=== PATIENT | male | born 1975 | race Caucasian/White ===

== ENCOUNTER 2017-10-10 08:02 | Emergency (ER) | payer BC ==
[~2017-10-10] VITALS: Ht 172.7 cm; Wt 72.6 kg
[~2017-10-10 08:02] MED LIST: [UNRECOGNIZED DRUG - REMARK]
[2017-10-10] MEDS ORDERED: SULF1TAB35 PO (09:08)
--- NOTE | 2017-10-10 09:08 | ED Integumentary General ---
General Chief Complaint: Bite-Animal/Human/Insect Stated Complaint: L ARM LAC BURNING Nursing Triage Note: Pt reports he was bitten by neighbor's dog on 10/06 to L forearm. Pt reports redness and "burning sensation" to L elbow upon waking this AM. Source: patient Exam Limitations: no limitations History of Present Illness Date Seen by Provider: October 10, 2017 Time Seen by Provider: 08:53 Initial Comments Patient presents to the ER by private conveyance with a chief complaint of to 3 days ago he came around a corner of his neighbor's house startled her dog and it bit him on the left forearm. His a few scratches on his forearm that are healing well. He was cleaning with peroxide and triple antibiotic ointment and wasn't concerned until today he noticed some redness, heat and swelling over the medial left elbow. He is not having any fevers chills nausea vomiting or diarrhea. He has no significant medical history and does not follow with a doctor. The neighbors report that the dog is up-to-date on vaccinations. Allergies and Home Medications Allergies Coded Allergies: No Known Drug Allergies (Unverified , 10/10/11) Patient Home Medication List Home Medication List Reviewed: Yes Constitutional: No chills, No fever EENTM: No ear discharge, No ear pain Respiratory: No cough, No short of breath Cardiovascular: No chest pain, No Hx of Intervention Gastrointestinal: No abdominal pain, No constipation, No diarrhea, No nausea Genitourinary: No discharge, No dysuria Skin: see HPI Past [id number] Hx Patient Social History Alcohol Use: Denies Use Recreational Drug Use: No Smoking Status: Never a Smoker Recent Foreign Travel: No Contact w/Someone Who Travel: No Recent Infectious Disease Expo: No Recent Hopitalizations: No Seasonal Allergies Seasonal Allergies: No Past Medical History Surgeries: Yes Orthopedic Respiratory: No Cardiac: No Neurological: No Genitourinary: No Gastrointestinal: No Musculoskeletal: No Endocrine: No HEENT: No Cancer: No Psychosocial: No Integumentary: No Blood Disorders: No Physical Exam Vital Signs Vital Signs - First Documented 10/10/17 08:34 Temp 98.7 Pulse 71 Resp 18 B/P (MAP) 127/91 (103) Pulse Ox 98 O2 Delivery Room Air Capillary Refill : Less Than 3 Seconds General Appearance: WD/WN, no apparent distress HEENT: PERRL/EOMI, pharynx normal Neck: full range of motion, normal inspection Cardiovascular: normal peripheral pulses, regular rate, rhythm, no edema Respiratory: no respiratory distress, no accessory muscle use Extremities: normal range of motion, normal capillary refill, other (left medial epitrochlear lymph node less than 1 cm palpable with overlying erythema but no area of fluctuance, induration or pore) Neurologic/Psychiatric: alert, oriented x 3 Skin: other (few superficial abrasions without area of fluctuance, erythema or induration around them that are well-healing on the forearm) Progress/Results/Core Measures Results/Orders Vital Signs/I&O 10/10/17 08:34 Temp 98.7 Pulse 71 Resp 18 B/P (MAP) 127/91 (103) Pulse Ox 98 O2 Delivery Room Air Blood Pressure Mean: 103 Progress Progress Note : Time: 09:04 Progress Note Reactive lymph node with some erythema after a dog bite. Be reasonable to cover him with some antibiotics, warm compresses in case it turns into an abscess lymph node. We have given him return precautions. Departure Impression Primary Impression: Dog bite Qualified Codes: W54.0XXA - Bitten by dog, initial encounter Additional Impression: Epitrochlear lymphadenopathy Disposition: 01 HOME, SELF-CARE Condition: Stable Departure-Patient Inst. Decision time for Depature: 09:05 Referrals: NO,LOCAL PHYSICIAN (PCP/Family) Primary Care Physician Patient Instructions: Animal Bites (DC) Add. Discharge Instructions: Keep an eye on the dog in the next 10 days and if it has any on behaviors he should follow-up with your doctor. If you're swelling and pain gets worse then you should follow-up with a doctor. Obtain the antibiotics and take one tablet twice a day for the next 5 days. Apply warm compresses several times a day for the next couple days until the swelling and redness goes away. All discharge instructions reviewed with patient and/or family. Voiced understanding. Scripts Sulfamethoxazole/Trimethoprim (Bactrim Ds Tablet) 1 Each Tablet 1 EACH PO BID for 5 Days, #10 TAB 0 Refills Prov: ERICA CARUSO 10/10/17 ERICA CARUSO October 10, 2017 09:08
[2017-10-10 09:19] VITALS: BP 127/91
== END 2017-10-10 09:19 | disposition home or self-care (01) ==
LOC: EDUNIT# 08:02 → ER 08:04
DX: S51.851A Open bite of right forearm, initial encounter (principal); R59.0 Localized enlarged lymph nodes; W54.0XXA Bitten by dog, initial encounter
CPT/HCPCS: 99283